=== PATIENT | female | born 1995 | race Two or more races ===

== ENCOUNTER 2020-05-02 13:06 | Outpatient (CLI) | payer OTHER | END 2020-05-02 22:22 | disposition home or self-care (01) | LOC: PPH VACUNA 13:06 | DX: Z23 Encounter for immunization (principal) ==

== ENCOUNTER 2021-03-08 08:18 | Outpatient (CLI) | payer OTHER | END 2021-03-08 08:20 | disposition home or self-care (01) | LOC: PPH VACUNA 08:18 | PROVIDERS: ATTEND Emergency Medicine Pediatric Emergency Medicine | DX: Z23 Encounter for immunization (principal) ==

== ENCOUNTER 2021-06-28 12:54 | Outpatient (CLI) | payer OTHER | END 2021-06-28 12:56 | disposition home or self-care (01) | LOC: SONOGRAMA 12:54 | PROVIDERS: ATTEND General Practice | DX: R10.2 Pelvic and perineal pain (principal) ==

== ENCOUNTER 2021-07-31 10:10 | Outpatient (CLI) | payer OTHER | END 2021-07-31 10:17 | disposition home or self-care (01) | LOC: RAD 10:10 | PROVIDERS: ATTEND General Practice | DX: Z01.818 Encounter for other preprocedural examination (principal) ==

== ENCOUNTER 2021-08-05 06:15 | Day surgery (SDC) | payer OTHER | END 2021-08-05 15:40 | disposition home or self-care (01) | LOC: CIR.AMB 06:15 | PROVIDERS: ATTEND Obstetrics & Gynecology | DX: N93.9 Abnormal uterine and vaginal bleeding, unspecified (principal); Z88.0 Allergy status to penicillin; J45.909 Unspecified asthma, uncomplicated; E66.9 Obesity, unspecified; Z20.822 Contact with and (suspected) exposure to COVID-19 ==